=== PATIENT | female | born 1995 | race Caucasian/White ===

== ENCOUNTER 2022-12-07 12:27 | Emergency (ER) | payer OTHER, SELFPAY ==
[2022-12-07 12:37] VITALS: BP 154/107; PULSE 85; RESP 16; TEMP 37.1; O2SAT 100
--- NOTE | 2022-12-07 13:09 | ED.SKABFB ---
HPI - Skin/Abscess/Foreign Bdy General Chief complaint: Skin/Abscess/Foreign Body Stated complaint: Allergic Recation Time Seen by Provider: 12/07/22 13:05 Source: patient, RN notes reviewed and old records reviewed Mode of arrival: ambulatory Limitations: no limitations History of Present Illness HPI narrative: 27 year old female ho presents to [facility] with complaints of reaction to herbal supplement she has been taking for a week to help reduce anxiety called 'Modern Mushroom by force factor'. Patient states that she has had various symptoms since taking supplement. She has red diffuse rash noted over her body and 1 hour prior to arrival she started having a scratchy throat and she felt like her throat was swelling and her skin looks red and flushed. Patient reports that she has been taking Benadryl orally a couple times a day and her last dose was at 1745 yesterday. Patient denies any reported shortness of breath or any difficulty swallowing states is itchy all over. MD complaint: rash Onset (ago): week(s) (1 with increased symptoms today) Location: generalized Quality: pruritic Associated symptoms: other (red faced with fine red rash all over body that is itchy and warm, throat scratchy ) Treatments prior to arrival: Benadryl Related Data Allergies Allergy/AdvReac Type Severity Reaction Status Date / Time No Known Allergies Allergy Verified 12/07/22 12:50 Review of Systems Review of Systems: CONSTITUTIONAL: Denies fever, chills, or sweats. CARDIOVASCULAR: Denies chest pain, palpitations, or edema. RESPIRATORY: Denies cough or dyspnea. SKIN: Reports rash generalized with face redness for a week which has increased in warmth redness today with throat scratchy and feeling like throat swelling MUSCULOSKELETAL: Denies joint pain or myalgia. NEUROLOGIC: Denies headache, numbness, or weakness. All systems reviewed & are unremarkable except as noted in HPI and below PMFSH Past Medical History Medical History (Updated 12/08/22 @ 19:22 by Lisha Antonio NP) Anxiety Social History Social History (Updated 12/08/22 @ 19:18 by Lisha Antonio NP) Smoking status: Never smoker Alcohol intake: never Substance use: never Gender identity (if verbalized by the patient): Female Comments At time of signature, agree with nursing past medical, surgical, social and family history. There is no relevant family history pertinent to the presenting complaint Exam Narrative: GENERAL: Well-appearing, well-nourished, and in no acute distress. HEAD: Normocephalic, atraumatic. EYES: PERRLA, conjunctivae clear, and EOMI. ENT: Mucous membranes moist. Oropharynx without edema, erythema or lesions. NECK: Supple. No lymphadenopathy CHEST: Clear to auscultation. No respiratory distress.SAO2 100% on room air, scratchy throat redness no swelling noted. HEART: Regular rate and rhythm. SKIN: Warm, dry.? red face with fine rash generalized over body which is itchy NEURO:? Alert and oriented x3. PSYCH: Normal mood and affect anxious Course Course Emergency Course: Patient is aware of diagnosis, understands and agrees to treatment plan.? Anticipatory guidance given.? Patient agrees to follow-up as directed and is aware of reasons to seek care at the emergency department. Portions of this record may have been created with voice recognition software Level of Care: Express Care Visit Vital Signs Vital signs: Vital Signs Temperature 37.1 C 12/07/22 12:37 Pulse Rate 85 12/07/22 12:37 Respiratory Rate 16 12/07/22 12:37 Blood Pressure 154/107 H 12/07/22 12:37 Pulse Oximetry 100 12/07/22 12:37 Oxygen Delivery Room Air 12/07/22 12:37 Temperature 37.1 C 12/07/22 12:37 Pulse Rate 82 12/07/22 13:30 Respiratory Rate 18 12/07/22 13:30 Blood Pressure 139/82 12/07/22 13:30 Pulse Oximetry 99 12/07/22 13:30 Oxygen Delivery Room Air 12/07/22 13:30 Reviewed MDM - Skin/A
[2022-12-07 13:30] VITALS: BP 139/82; PULSE 82; RESP 18; O2SAT 99
== END 2022-12-07 13:30 | disposition home or self-care (01) ==
PROVIDERS: Emergency Provider Registered Nurse
DX: L27.0 Generalized skin eruption due to drugs and medicaments taken internally (principal); T50.995A Adverse effect of other drugs, medicaments and biological substances, initial encounter
CPT/HCPCS: 99213; G0463